=== PATIENT | male | born 1970 | race Caucasian/White ===

== ENCOUNTER 2025-04-18 09:08 | Outpatient (CLI) | payer OTHER, SELFPAY ==
--- NOTE | 2025-04-18 09:40 | NEURO_ITS ---
Impression: # Diabetic complains of increasing numbness with no family history of nerve problems. ? # Axonal symmetrical motor/sensory Neuropathy. ? # Neurogenic changes on needle more so distally. Nerve Conduction Studies ?Stim Site NR Peak (ms) P-T Amp (?V) Site1 Site2 Delta-P (ms) Dist (cm) Kwasi (m/s) Left Sup Fibular Anti Sensory (Ant Lat Mall) 14 cm ? 3.7 4.1 14 cm Ant Lat Mall 3.7 16.0 43 Right Sup Fibular Anti Sensory (Ant Lat Mall) 14 cm ? 3.7 7.4 14 cm Ant Lat Mall 3.7 16.0 43 Left Sural Anti Sensory (Lat Mall) Calf ? 3.6 11.5 Calf Lat Mall 3.6 16.0 44 Right Sural Anti Sensory (Lat Mall) Calf ? 3.4 16.8 Calf Lat Mall 3.4 16.0 47 ?Stim Site NR Onset (ms) O-P Amp (mV) Site1 Site2 Delta-0 (ms) Dist (cm) Kwasi (m/s) Left Peroneal Motor (Vastus Med) Ankle ? 4.5 5.2 Popit Ankle 11.0 41.0 37 Popit ? 15.5 4.6 Right Peroneal Motor (Vastus Med) Ankle ? 4.8 2.9 Popit Ankle 11.8 43.0 36 Popit ? 16.6 1.7 Left Tibial Motor (Abd Burnham Brev) Ankle ? 5.1 0.6 Knee Ankle 10.1 44.0 44 Knee ? 15.2 2.7 Right Tibial Motor (Abd Burnham Brev) Ankle ? 5.4 0.8 Knee Ankle 11.9 45.0 38 Knee ? 17.3 0.4 F Wave Studies ?NR F-Lat (ms) L-R F-Lat (ms) Left Peroneal (Mrkrs) (EDB) ? 59.92 Right Peroneal (Mrkrs) (EDB)??? DISPERSED RESPONSE NR Left Tibial (Mrkrs) (Abd Hallucis) ? 55.97 Right Tibial (Mrkrs) (Abd Hallucis)??? DISPERSED RESPONSE NR Electromyography ?Side Muscle Nerve Root Ins Act Fibs Amp Dur Recrt Comment Right AntTibialis Dp Br Fibular L4-5 Nml Nml Decr >12ms +1 Right Gastroc Tibial S1-2 Nml Nml Decr >12ms +1 Right Fibularis Long Sup Br Fibular L5-S1 Nml Nml Decr >12ms +1 Right Flex Dig Long Tibial L5-S2 Nml Nml Decr >12ms +1 Right Ext Dig Brev Dp Br Fibular L5, S1 Nml Nml Decr >12ms +2 Right QuadratusFem QuadFemoris L4-5, S1 Nml Nml Decr >12ms +1 Left AntTibialis Dp Br Fibular L4-5 Nml Nml Decr >12ms +1 Left Gastroc Tibial S1-2 Nml Nml Decr >12ms +1 Left Fibularis Long Sup Br Fibular L5-S1 Nml Nml Decr >12ms +1 Left Flex Dig Long Tibial L5-S2 Nml Nml Decr >12ms +1 Left Ext Dig Brev Dp Br Fibular L5, S1 Nml Nml Decr >12ms +2 Left QuadratusFem QuadFemoris L4-5, S1 Nml Nml Decr >12ms +1
== END 2025-04-18 09:09 | disposition home or self-care (01) ==
PROVIDERS: PCP Physician Assistant Medical; Visit Provider Physician Assistant Medical
DX: G62.9 Polyneuropathy, unspecified (principal)
CPT/HCPCS: 95886; 95910